=== PATIENT | female | born 1980 | race Caucasian/White ===

== ENCOUNTER 2020-01-12 07:37 | Day surgery (SDC) | payer OTHER ==
[~2020-01-12] VITALS: Ht 157.5 cm; Wt 72.9 kg
[2020-01-12 07:59] VITALS: BP 110/80; PULSE 84; TEMP 98.6
[2020-01-12] MEDS ORDERED: DIGESTIVE ADVA1 EAC1 PO (08:20)
[2020-01-12] MEDS ORDERED: ONE-A-DAY ESSE1 EACH PO (08:20)
[2020-01-12 09:10] VITALS: BP 113/83; PULSE 71
--- NOTE | 2020-01-12 09:10 | NUR ---
Pt to [facility] via car from [facility]O. Pt drowsy, but awake. Pt denies nausea. Water and apple sauce given. Will continue to monitor. Call light within reach.
[2020-01-12 09:25] VITALS: BP 106/77; PULSE 74
--- NOTE | 2020-01-12 09:25 | NUR ---
Pt continues to rest. Denies needs. Call light within reach.
[2020-01-12 09:40] VITALS: BP 109/75; PULSE 77
--- NOTE | 2020-01-12 09:40 | NUR ---
Pt continues to rest. Tolerating food and fluids without difficulties. Call light within reach.
[2020-01-12 09:55] VITALS: BP 96/63; PULSE 69
--- NOTE | 2020-01-12 09:55 | NUR ---
Pt denies any needs. COntinues to rest. Will continue to monitor.
[2020-01-12 10:25] VITALS: BP 102/65; PULSE 77
--- NOTE | 2020-01-12 10:25 | NUR ---
IV site discontinued with all parts intact. Pt up to dress. Will continue to monitor.
--- NOTE | 2020-01-12 10:55 | NUR ---
Discharge instructions reviewed. Pt voices understanding. Pt escorted to private car via wheel chair. Pt accompanied home by her .
== END 2020-01-12 10:55 | disposition home or self-care (01) ==
LOC: SDCO 07:37
DX: K21.9 Gastro-esophageal reflux disease without esophagitis (principal); K22.2 Esophageal obstruction; Z88.1 Allergy status to other antibiotic agents; G47.33 Obstructive sleep apnea (adult) (pediatric); Z20.828 Contact with and (suspected) exposure to other viral communicable diseases
CPT/HCPCS: C1726; J2704; J3010; J7030